=== PATIENT | male | born 1975 | race Caucasian/White ===

== ENCOUNTER 2021-06-19 12:09 | Day surgery (SDC) | payer OTHER, BC ==
[~2021-06-19] VITALS: Ht 180.3 cm; Wt 106.0 kg
[~2021-06-19 12:09] MED LIST: CEPH500 PO; Flomax0.4 MG PO; HYDACE5 PO; IBUP800 PO; NAPR220 PO; Norco 10-325 T1 EACH PO; OXYACE5T PO; PANT40; Percocet 10-321 EACH PO; Prednisone20 MG PO; SULTRIDS PO; TEGA6
== END 2021-06-19 14:33 | disposition home or self-care (01) ==
LOC: ORSCSDS 12:09
PROVIDERS: Internal Medicine Gastroenterology
PROC: 0DJD8ZZ Inspection of Lower Intestinal Tract, Via Natural or Artificial Opening Endoscopic (ICD-10-PCS; principal; 2021-06-19 13:30)
DX: Z86.010 Personal history of colon polyps (principal); Z80.0 Family history of malignant neoplasm of digestive organs; E66.9 Obesity, unspecified; Z68.33 Body mass index [BMI] 33.0-33.9, adult
CPT/HCPCS: J2704; J7120